=== PATIENT | female | born 1990 | race African-American/Black ===

== ENCOUNTER 2018-01-23 08:27 | Inpatient (IN) | payer OTHER ==
--- NOTE | 2018-01-23 08:55 | ED ---
Recheck HPI - General Chief Complaint: Recheck/Abnormal Lab/Rx Stated Complaint: battery in vagina 3days Time Seen by Provider: 01/23/18 08:36 Source: patient, family, RN notes reviewed, old records reviewed Mode of arrival: ambulatory Limitations: no limitations - History of Present Illness Initial Comments: Presley is a 27-year-old female with history of mental delay presents emergency room with her sister. Chief complaint of the battery in her vagina for the past 3 days. Patient reports that sound very painful. Patient is a poor historian. The sister reports that she just started to tell her about the pain and brought her in her further evaluation. She has had a fever and is felt very sick. - Related Data Home Medications Medication Instructions Recorded Confirmed QUEtiapine [SEROquel] 50 mg PO HS 01/23/18 01/23/18 Allergies Allergy/AdvReac Type Severity Reaction Status Date / Time No Known Allergies Allergy Verified 01/23/18 11:58 Review of Systems ROS Statement: Those systems with pertinent positive or pertinent negative responses have been documented in the HPI. ROS Other: All systems not noted in ROS Statement are negative. Past Medical History Past Medical History: Unable to Obtain History of Any Multi-Drug Resistant Organisms: None Reported Past Surgical History: Unable to Obtain Past Psychological History: No Psychological Hx Reported Smoking Status: Never smoker Past Alcohol Use History: None Reported Past Drug Use History: None Reported General Exam - General Exam Comments Initial Comments: Patient is a 27-year-old female. Alert and oriented. No significant distress. Limitations: no limitations General appearance: alert, in no apparent distress Head exam: Present: atraumatic, normocephalic, normal inspection Eye exam: Present: normal appearance, PERRL, EOMI. Absent: scleral icterus, conjunctival injection, periorbital swelling ENT exam: Present: normal exam, mucous membranes moist Neck exam: Present: normal inspection. Absent: tenderness, meningismus, lymphadenopathy Respiratory exam: Present: normal lung sounds bilaterally. Absent: respiratory distress, wheezes, rales, rhonchi, stridor Cardiovascular Exam: Present: regular rate, normal rhythm, normal heart sounds. Absent: systolic murmur, diastolic murmur, rubs, gallop, clicks GI/Abdominal exam: Present: soft, normal bowel sounds. Absent: distended, tenderness, guarding, rebound, rigid External exam: Present: normal external exam Speculum exam: Present: foreign body (D battery). Absent: normal speculum exam (Patient has a deep battery with corrosion and vaginal irritation.) By manual exam: Present: cervical motion tenderness. Absent: normal by manual exam Extremities exam: Present: normal inspection, full ROM, normal capillary refill. Absent: tenderness, pedal edema, joint swelling, calf tenderness Back exam: Present: normal inspection Neurological exam: Present: alert, oriented X3, CN II-XII intact Psychiatric exam: Present: normal affect, normal mood Skin exam: Present: warm, dry, intact, normal color. Absent: rash Course Vital Signs 01/23/18 01/23/18 08:36 09:37 Temperature 99.4 F 101.4 F H Pulse Rate 115 H Respiratory 18 Rate Blood Pressure 108/63 O2 Sat by Pulse 95 Oximetry Medical Decision Making - Medical Decision Making 27-year-old female presents with fever and vaginal foreign body. She has a D battery that is been in her vagina for the past 3 days. On speculum exam initially was quite difficult to remove. Myself and Dr. López were able to remove the battery with forceps. It appears to have very irritated and necrotic vaginal tissue. Patient's have a fever 101.4. Blood cultures lactic acid an IV established. Given a gram of Rocephin and 2 g of Ancef. White blood cell count is elevated 23,000. Dr. Bailey the on-call BOTTLE GAUGER has been down to evaluate the Patient. He was there is also retained foreign body, tampon. Patient will have to go to the OR for vaginal exploration. - Lab Data Result diagrams: 01/23/18 09:45 01/23/18 09:45 Lab Results 01/23/18 01/23/18 01/23/18 Range/Units 09:45 09:45 09:45 WBC 23.4 H (3.8-10.6) k/uL RBC 5.10 (3.80-5.40) m/uL Hgb 13.1 (11.4-16.0) gm/dL Hct 41.0 (34.0-46.0) % MCV 80.4 (80.0-100.0) fL MCH 25.7 (25.0-35.0) pg MCHC 31.9 (31.0-37.0) g/dL RDW 14.0 (11.5-15.5) % Plt Count 280 (150-450) k/uL Neutrophils % 88 % Lymphocytes % 7 % Monocytes % 4 % Eosinophils % 1 % Basophils % 0 % Neutrophils # 20.6 H (1.3-7.7) k/uL Lymphocytes # 1.6 (1.0-4.8) k/uL Monocytes # 0.9 (0-1.0) k/uL Eosinophils # 0.1 (0-0.7) k/uL Basophils # 0.0 (0-0.2) k/uL Manual Slide Review Performed RBC Morphology Normal Sodium 139 (137-145) mmol/L Potassium 3.9 (3.5-5.1) mmol/L Chloride 105 (98-107) mmol/L Carbon Dioxide 21 L (22-30) mmol/L Anion Gap 13 mmol/L BUN 8 (7-17) mg/dL Creatinine 0.71 (0.52-1.04) mg/dL Est GFR (CKD-EPI)AfAm >90 (>60 ml/min/1.73 sqM) Est GFR (CKD-EPI)NonAf >90 (>60 ml/min/1.73 sqM) Glucose 111 H (74-99) mg/dL Plasma Lactic Acid Lico 1.0 (0.7-2.0) mmol/L Calcium 9.0 (8.4-10.2) mg/dL Total Bilirubin 0.7 (0.2-1.3) mg/dL AST 15 (14-36) U/L ALT 23 (9-52) U/L Alkaline Phosphatase 77 (38-126) U/L Total Protein 7.2 (6.3-8.2) g/dL Albumin 4.2 (3.5-5.0) g/dL Urine Color Urine Appearance (Clear) Urine pH (5.0-8.0) Ur Specific [place] (1.001-1.035) Urine Protein (Negative) Urine Glucose (UA) (Negative) Urine Ketones (Negative) Urine Blood (Negative) Urine Nitrite (Negative) Urine Bilirubin (Negative) Urine Urobilinogen (<2.0) mg/dL Ur Leukocyte Esterase (Negative) Urine RBC (0-5) /hpf Urine WBC (0-5) /hpf Ur Squamous Epith Cells (0-4) /hpf Urine Bacteria (None) /hpf Urine Mucus (None) /hpf Urine HCG, Qual (Not Detectd) 01/23/18 01/23/18 Range/Units 11:00 11:00 WBC (3.8-10.6) k/uL RBC (3.80-5.40) m/uL Hgb (11.4-16.0) gm/dL Hct (34.0-46.0) % MCV (80.0-100.0) fL MCH (25.0-35.0) pg MCHC (31.0-37.0) g/dL RDW (11.5-15.5) % Plt Count (150-450) k/uL Neutrophils % % Lymphocytes % % Monocytes % % Eosinophils % % Basophils % % Neutrophils # (1.3-7.7) k/uL Lymphocytes # (1.0-4.8) k/uL Monocytes # (0-1.0) k/uL Eosinophils # (0-0.7) k/uL Basophils # (0-0.2) k/uL Manual Slide Review RBC Morphology Sodium (137-145) mmol/L Potassium (3.5-5.1) mmol/L Chloride (98-107) mmol/L Carbon Dioxide (22-30) mmol/L Anion Gap mmol/L BUN (7-17) mg/dL Creatinine (0.52-1.04) mg/dL Est GFR (CKD-EPI)AfAm (>60 ml/min/1.73 sqM) Est GFR (CKD-EPI)NonAf (>60 ml/min/1.73 sqM) Glucose (74-99) mg/dL Plasma Lactic Acid Lico (0.7-2.0) mmol/L Calcium (8.4-10.2) mg/dL Total Bilirubin (0.2-1.3) mg/dL AST (14-36) U/L ALT (9-52) U/L Alkaline Phosphatase (38-126) U/L Total Protein (6.3-8.2) g/dL Albumin (3.5-5.0) g/dL Urine Color Dark Brown Urine Appearance Cloudy H (Clear) Urine pH 6.0 (5.0-8.0) Ur Specific [place] 1.029 (1.001-1.035) Urine Protein 2+ H (Negative) Urine Glucose (UA) Trace H (Negative) Urine Ketones 3+ H (Negative) Urine Blood Large H (Negative) Urine Nitrite Negative (Negative) Urine Bilirubin Negative (Negative) Urine Urobilinogen 3.0 (<2.0) mg/dL Ur Leukocyte Esterase Moderate H (Negative) Urine RBC 171 H (0-5) /hpf Urine WBC 53 H (0-5) /hpf Ur Squamous Epith Cells 2 (0-4) /hpf Urine Bacteria Few H (None) /hpf Urine Mucus Many H (None) /hpf Urine HCG, Qual Not Detected (Not Detectd) - Radiology Data Radiology results: report reviewed Nonobstructive bowel gas pattern. Disposition Clinical Impression: Vaginal foreign body, Sepsis Disposition: ADMITTED IP TO THIS HOSP Condition: Stable Is patient prescribed a controlled substance at d/c from ED?: No When asked, does pt state using other controlled substances?: No If prescribed controlled substance>3 days was MAPS reviewed?: No If opioid is for acute pain is fill amount 7 days or less?: No If Rx opioid, was Start Talking consent form obtained?: No Referrals: Red Mcelroy MD [Primary Care Provider] - 1-2 days Time of Disposition: 12:06
[2018-01-23] MEDS ORDERED: ACETAMINOPHEN TAB 500 MG TAB PO STA (09:37)
[2018-01-23] MEDS ORDERED: IBUPROFEN 600 MG TAB PO STA (09:37)
[2018-01-23] MEDS ORDERED: SODIUM CHLORIDE 0.9% 1,000 ML IV ONE (09:38)
[2018-01-23] MEDS ORDERED: cefTRIAXone IN SWFI 1,000 MG/10 ML SYRINGE IVP STA (09:42)
[2018-01-23] MEDS ORDERED: SODIUM CHLORIDE 0.9% 1,000 ML IV SCH (09:45)
--- NOTE | 2018-01-23 10:46 | XR ---
Abdomen HISTORY: Altered mental status, pain Frontal view of the abdomen on 2 images correlated to prior exam 04/21/2006 Lung bases are clear. Heart size may be borderline. Air-fluid levels are present without bowel disten tion. No radiopaque foreign body. No obstruction or pneumoperitoneum. impression: Nonobstructive bowel gas pattern.
[2018-01-23 10:48] LABS: Basophils % (A) 0 %; Eosinophils # (A) 0.1 k/uL (0-0.7); Eosinophils % (A) 1 %; HGB 13.1 gm/dL (11.4-16.0); Lymphocytes # (A) 1.6 k/uL (1.0-4.8); Lymphocytes % (A) 7 %; MCH 25.7 pg (25.0-35.0); MCHC 31.9 g/dL (31.0-37.0); MCV 80.4 fL (80.0-100.0); Mean Platelet Volume 6.8; Monocytes # (A) 0.9 k/uL (0-1.0); Monocytes % (A) 4 %; Neutrophils # (A) 20.6 k/uL (1.3-7.7); Neutrophils % (A) 88 %; Platelet Count 280 k/uL (150-450); WBC 23.4 k/uL (3.8-10.6)
[2018-01-23 10:59] LABS: ALT 23 U/L (9-52); AST 15 U/L (14-36); Albumin 4.2 g/dL (3.5-5.0); Alkaline Phosphatase 77 U/L (38-126); Anion Gap 13 mmol/L; Blood Urea Nitrogen 8 mg/dL (7-17); Carbon Dioxide 21 mmol/L (22-30); Chloride 105 mmol/L (98-107); Glucose 111 mg/dL (74-99); Potassium 3.9 mmol/L (3.5-5.1); Sodium 139 mmol/L (137-145); Total Bilirubin 0.7 mg/dL (0.2-1.3); Total Protein 7.2 g/dL (6.3-8.2)
[2018-01-23 11:19] LABS: Appearance,Urine Cloudy (Clear); Bacteria,Urine Few /hpf; Bilirubin,Urine Negative (Negative); Blood,Urine Large (Negative); Color,Urine Dark Brown; Glucose,Urine (UA) Trace (Negative); Ketones,Urine 3+ (Negative); Leukocyte Esterase,Urine Moderate (Negative); Mucus,Urine Many /hpf; Nitrite,Urine Negative (Negative); Protein,Urine 2+ (Negative); RBC,Urine 171 /hpf (0-5); Specific Gravity,Urine 1.029 (1.001-1.035); Squamous Epithelial Cell,Urine 2 /hpf (0-4); WBC,Urine 53 /hpf (0-5)
--- NOTE | 2018-01-23 11:28 | XR ---
EXAMINATION TYPE: XR chest 2V DATE OF EXAM: 01/23/2018 COMPARISON: NONE HISTORY: Difficulty breathing TECHNIQUE: Frontal and lateral views of the chest are obtained. FINDINGS: There is no focal air space opacity, pleural effusion, or pneumothorax seen. The cardiac silhouette size is within normal limits. Lung volumes appear low. Question some prominence of the pul monary vascularity. Interstitium mildly prominent. The osseous structures are intact. IMPRESSION: Lung volumes are low. There may be pulmonary venous hypertension and early interstitial edema.
[2018-01-23] MEDS ORDERED: ceFAZolin IN SWFI 2 GM/20 ML SYRINGE IVP STA (11:56)
[2018-01-23] MEDS ORDERED: NALOXONE 0.4 MG/ML 1 ML VIAL IV PRN (12:07)
[2018-01-23] MEDS ORDERED: KETOROLAC 30 MG/ML 1 ML VIAL IVP PRN (12:07)
[2018-01-23] MEDS ORDERED: ONDANSETRON 4 MG/2 ML VIAL IVP PRN (12:07)
[2018-01-23] MEDS ORDERED: MORPHINE SULFATE 2 MG/ML SYRINGE IV PRN (12:07)
[2018-01-23] MEDS ORDERED: IBUPROFEN 400 MG TAB PO PRN (12:07)
[2018-01-23] MEDS ORDERED: ACETAMINOPHEN TAB 325 MG TAB PO PRN (12:07)
--- NOTE | 2018-01-23 12:11 | P.HPOB ---
History of Present Illness H&P Date: 01/23/18 Chief Complaint: Fever, retained vaginal foreign body. This patient is a 27-year-old 0 para 0 female who is brought to the emergency department by her sister because the patient stated that this morning she had placed a D battery in her vagina few days ago. Patient is learning disabled and is unable to communicate directly with me so her history is from her sister. On questioning the patient does indicate that the battery was placed 2 or 3 days ago. She believes her last menstrual cycle was sometime about a week ago and she does use tampons. Patient was brought to the emergency department this morning and after several attempts a D battery was removed, however patient was noted have a white blood cell count of 23 and spiked a fever. Examination is difficult the patient does not tolerate well therefore is unable to be determined if she has other retained foreign objects or just necrotic tissue. Patient denies any fevers or chills. She denies nausea vomiting and diarrhea. She denies cough. Review of Systems Constitutional: Reports fever Genitourinary: Reports as per HPI Past Medical History Past Medical History: Unable to Obtain History of Any Multi-Drug Resistant Organisms: None Reported Past Surgical History: Unable to Obtain Past Psychological History: No Psychological Hx Reported Smoking Status: Never smoker Past Alcohol Use History: None Reported Past Drug Use History: None Reported Medications and Allergies Home Medications Medication Instructions Recorded Confirmed Type QUEtiapine [SEROquel] 50 mg PO HS 01/23/18 01/23/18 History Allergies Allergy/AdvReac Type Severity Reaction Status Date / Time No Known Allergies Allergy Verified 01/23/18 11:58 Exam Vital Signs Temp Pulse Resp BP Pulse Ox 01/23/18 09:37 101.4 F H 01/23/18 08:36 99.4 F 115 H 18 108/63 95 Intake and Output 01/22/18 01/23/18 01/23/18 22:59 06:59 14:59 Other: Weight 99.79 kg - OBG Physical Exam Abdomen: bowel sounds normal (Abdomen soft nontender.), no diffuse tenderness, no bruit present, no guarding noted, no hepatomegaly, no splenomegaly, no mass Vulva: both: normal Vagina: ulceration Cervix: Examination is quite limited although the patient either has areas of laceration or erosion versus foreign body cannot be determined on exam in the ER. Results Result Diagrams: 01/23/18 09:45 01/23/18 09:45 Abnormal Lab Results - Last 24 Hours (Table) 01/23/18 01/23/18 01/23/18 Range/Units 09:45 09:45 11:00 WBC 23.4 H (3.8-10.6) k/uL Neutrophils # 20.6 H (1.3-7.7) k/uL Carbon Dioxide 21 L (22-30) mmol/L Glucose 111 H (74-99) mg/dL Urine Appearance Cloudy H (Clear) Urine Protein 2+ H (Negative) Urine Glucose (UA) Trace H (Negative) Urine Ketones 3+ H (Negative) Urine Blood Large H (Negative) Ur Leukocyte Esterase Moderate H (Negative) Urine RBC 171 H (0-5) /hpf Urine WBC 53 H (0-5) /hpf Urine Bacteria Few H (None) /hpf Urine Mucus Many H (None) /hpf Assessment and Plan Assessment: This is a 27-year-old 0 para 0 female who is admitted through the emergency department with a retained foreign object in the vagina (D battery). Patient also has developed a fever to 101.4 and an elevated white count. Due to the patient's learning disability and discomfort, I am unable to do a complete exam to ensure there is no other retained foreign objects. Plan is to take this patient to the operating room and do an examination under anesthesia. I discussed this with the patient and her sister and certainly her sister is knowledgeable and able to give us consent. She understands the risk of surgery including the risk of anesthesia and the risk of surgery itself. All the patient's questions are answered and a written consent is obtained. (1) Retained foreign body Current Visit: Yes Status: Acute Code(s): Z18.9 - RETAINED FOREIGN BODY FRAGMENTS, UNSPECIFIED MATERIAL SNOMED Code(s): 096057006709609 (2) Pelvic infection Current Visit: Yes Status: Acute Code(s): QCM0935 - SNOMED Code(s): 823696153
[2018-01-23] MEDS ORDERED: LIDOCAINE 1% INJ 10MG/ML (20 ML MDV) ONE (13:10)
[2018-01-23] MEDS ORDERED: MIDAZOLAM 2 MG/2 ML VIAL ONE (13:10)
[2018-01-23] MEDS ORDERED: fentaNYL (PF) 50 MCG/ML 2 ML AMP ONE (13:10)
[2018-01-23] MEDS ORDERED: LACTATED RINGERS 1,000 ML IV ONE (13:10)
[2018-01-23] MEDS ORDERED: PROPOFOL 10 MG/ML 20 ML VIAL IV ONE (13:10)
[2018-01-23] MEDS ORDERED: SUCCINYLCHOLINE CHLORIDE 100 MG/5 ML SYR IV ONE (13:10)
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
[2018-01-23 14:12] VITALS: BMI 40.2
[2018-01-23] MEDS: metroNIDAZOLE-NS PMX 500 MG in SALINE 1 100ML.BAG IVPB SCH (16:10)
[2018-01-24] MEDS: metroNIDAZOLE-NS PMX 500 MG in SALINE 1 100ML.BAG IVPB SCH (00:08)
[2018-01-24] MEDS: ceFAZolin IN SWFI 2 GM/20 ML SYRINGE IVP SCH ×2 (00:44→03:45)
[2018-01-24] MEDS ORDERED: DIPHENOX-ATROP 2.5-0.025 MG 1 EACH TAB PO PRN (07:17)
--- NOTE | 2018-01-24 07:17 | P.PN ---
Progress Note - Text Progress Note Date: 01/24/18 Hospital day #2. Patient is resting without new complaints. She does have some diarrhea but this was noted prior to admission. So I do not think this is secondary to her antibiotics. Vital signs are stable and she is only had 1 low- grade temperature to 99. She is afebrile. Abdomen is soft nontender. Patient is receiving IV Ancef and Flagyl. I'm going to change her over to an oral antibiotic and check a CBC. If her white blood cell count was decreasing then most likely discharge home on 7 day course of oral antibiotics.
[2018-01-24 08:44] VITALS: PULSE 89; RESP 17
[2018-01-24 08:52] LABS: Basophils # (A) 0.1 k/uL (0-0.2); Basophils % (A) 0 %; Eosinophils # (A) 0.4 k/uL (0-0.7); Eosinophils % (A) 3 %; HCT 38.1 % (34.0-46.0); HGB 12.3 gm/dL (11.4-16.0); Lymphocytes % (A) 13 %; MCH 26.1 pg (25.0-35.0); MCHC 32.4 g/dL (31.0-37.0); MCV 80.6 fL (80.0-100.0); Mean Platelet Volume 6.9; Monocytes # (A) 0.5 k/uL (0-1.0); Monocytes % (A) 3 %; Neutrophils # (A) 12.5 k/uL (1.3-7.7); Neutrophils % (A) 81 %; Platelet Count 249 k/uL (150-450); RBC 4.72 m/uL (3.80-5.40); RDW 14.1 % (11.5-15.5); WBC 15.5 k/uL (3.8-10.6)
[2018-01-24] MEDS ORDERED: PANTOPRAZOLE 40 MG/10 ML VIAL IV SCH (09:00)
[2018-01-24] MEDS ORDERED: DOXYCYCLINE MONOHYDRATE 100 MG CAPSULE PO SCH (09:00)
[2018-01-24] MEDS ORDERED: metroNIDAZOLE 500 MG TAB PO SCH (09:00)
[2018-01-24 12:11] VITALS: BP 124/78; TEMP 98.8
== END 2018-01-24 12:00 | disposition home or self-care (01) | DRG 761 ==
LOC: EC 08:27 → EEVIPCON 08:27 → 4FBP 12:09 → OBSVTOIN 01-24 07:52
PROVIDERS: ADMIT Obstetrics & Gynecology; ATTEND Obstetrics & Gynecology
PROC: 0UJH7ZZ Inspection of Vagina and Cul-de-sac, Via Natural or Artificial Opening (ICD-10-PCS; 2018-01-23)
PROC: 0UCG7ZZ Extirpation of Matter from Vagina, Via Natural or Artificial Opening (ICD-10-PCS; principal; 2018-01-23 12:30)
DX: T19.2XXA Foreign body in vulva and vagina, initial encounter (principal); F79 Unspecified intellectual disabilities; F81.9 Developmental disorder of scholastic skills, unspecified; Z79.899 Other long term (current) drug therapy; T54.2X1A Toxic effect of corrosive acids and acid-like substances, accidental (unintentional), initial encounter; T28.8XXA Corrosion of internal genitourinary organs, initial encounter; N73.9 Female pelvic inflammatory disease, unspecified
CPT/HCPCS: 36415; 71046; 74018; 80053; 81001; 81025; 83605; 85025; 87040; 96361; 96374; 96375; 99285

== ENCOUNTER → 2024-05-26 | Outpatient (CLI) | payer OTHER ==
[2024-05-26 15:35] LABS: Basophils # (A) 0.04 X 10*3/uL (0.00-0.10); Basophils % (A) 0.5 %; Eosinophils # (A) 0.04 X 10*3/uL (0.04-0.35); Eosinophils % (A) 0.5 %; HCT 35.8 % (37.2-46.3); HGB 10.9 g/dL (12.0-15.0); Lymphocytes # (A) 2.81 X 10*3/uL (0.90-5.00); MCH 24.9 pg (27.0-32.0); MCHC 30.4 g/dL (32.0-37.0); MCV 81.7 FL (80.0-97.0); Mean Platelet Volume 9.9 FL (9.5-12.2); Monocytes # (A) 0.29 X 10*3/uL (0.20-1.00); Monocytes % (A) 3.5 %; NRBC Per 100 WBC 0 X 10*3/uL (0.00-0.01); Neutrophils # (A) 5.05 X 10*3/uL (1.80-7.70); Neutrophils % (A) 61.1 %; Platelet Count 364 X 10*3/uL (140-440); RBC 4.38 X 10*6/uL (4.10-5.20); RDW 15.5 % (11.5-14.5); WBC 8.26 X 10*3/uL (4.50-10.00)
[2024-05-26 16:10] LABS: Chol/HDL Ratio 3.53 Ratio
[2024-05-26 16:11] LABS: ALT 22 U/L (8-44); AST 17 U/L (13-35); Albumin 3.8 g/dL (3.8-4.9); Albumin/Globulin Ratio 1.27 Ratio (1.60-3.17); Alkaline Phosphatase 95 U/L (41-126); Blood Urea Nitrogen 10.8 mg/dL (9.0-27.0); Calcium 8.9 mg/dL (8.7-10.3); Carbon Dioxide 23.1 mmol/L (21.6-31.8); Chloride 106 mmol/L (96-109); Glucose 91 mg/dL (70-110); Potassium 4.5 mmol/L (3.5-5.5); Sodium 139 mmol/L (135-145); Total Bilirubin 0.3 mg/dL (0.3-1.2); Total Protein 6.8 g/dL (6.2-8.2)
== END | disposition home or self-care (01) ==
LOC: LABWHC1 08:17
PROVIDERS: ATTEND Nurse Practitioner Family
DX: Z23 Encounter for immunization (principal); E66.01 Morbid (severe) obesity due to excess calories; F20.9 Schizophrenia, unspecified; N76.0 Acute vaginitis; F79 Unspecified intellectual disabilities; Z79.899 Other long term (current) drug therapy
CPT/HCPCS: 36415; 80053; 80061; 83036; 84443; 85025

== ENCOUNTER → 2024-09-23 | Outpatient (CLI) | payer OTHER ==
[2024-09-23 16:34] LABS: Basophils # (A) 0.04 X 10*3/uL (0.00-0.10); Basophils % (A) 0.5 %; Eosinophils # (A) 0.09 X 10*3/uL (0.04-0.35); HCT 38.3 % (37.2-46.3); Lymphocytes # (A) 2.54 X 10*3/uL (0.90-5.00); Lymphocytes % (A) 28.7 %; MCH 25.2 pg (27.0-32.0); MCHC 31.3 g/dL (32.0-37.0); MCV 80.5 FL (80.0-97.0); Mean Platelet Volume 9.9 FL (9.5-12.2); Monocytes # (A) 0.66 X 10*3/uL (0.20-1.00); Monocytes % (A) 7.5 %; NRBC Per 100 WBC 0 X 10*3/uL (0.00-0.01); Neutrophils % (A) 62.1 %; Platelet Count 271 X 10*3/uL (140-440); RBC 4.76 X 10*6/uL (4.10-5.20); RDW 15.3 % (11.5-14.5); WBC 8.85 X 10*3/uL (4.50-10.00)
[2024-09-23 17:15] LABS: ALT 14 U/L (8-44); AST 15 U/L (13-35); Albumin 3.9 g/dL (3.8-4.9); Albumin/Globulin Ratio 1.34 Ratio (1.60-3.17); Alkaline Phosphatase 98 U/L (41-126); Blood Urea Nitrogen 8.7 mg/dL (9.0-27.0); Calcium 8.8 mg/dL (8.7-10.3); Carbon Dioxide 22.5 mmol/L (21.6-31.8); Chloride 107 mmol/L (96-109); Globulin 2.9 g/dL (1.6-3.3); Glucose 124 mg/dL (70-110); Potassium 4.2 mmol/L (3.5-5.5); Sodium 138 mmol/L (135-145); Total Bilirubin 0.2 mg/dL (0.3-1.2); Total Protein 6.8 g/dL (6.2-8.2)
== END | disposition home or self-care (01) ==
LOC: LABWHC1 08:22
PROVIDERS: ATTEND Nurse Practitioner
DX: F70 Mild intellectual disabilities (principal); F84.0 Autistic disorder; Z79.899 Other long term (current) drug therapy
CPT/HCPCS: 36415; 80053; 82306; 83036; 84439; 84443; 85025